=== PATIENT | male | born 1975 | race Caucasian/White ===

== ENCOUNTER → 2022-05-15 | Outpatient (CLI) | payer SELFPAY ==
[~2022-05-15] MED LIST: ASPI81CH33 PO; ATOR40TA75 PO; DEXA4TA PO; HYDR-3490 PO; METF750T36 PO
== END ==
LOC: M ONCR 13:31
PROVIDERS: ATTEND Dietitian, Registered
DX: Z79.899 Other long term (current) drug therapy (principal)